=== PATIENT | female | born 1950 | race Caucasian/White ===

== ENCOUNTER → 2021-04-06 | Outpatient (CLI) | payer MEDICARE ==
[~2021-04-06] MED LIST: CALCIUM600 MG PO; CLONAZEPAM0.5 MG PO; COZAAR100 MG PO; CYANOCOBAL1000 MCG/1 INJ; CYCLOBENZAPRINE5 MG PO; ECOTRIN81 MG PO; LOVAZA1 GM PO; MOBIC7.5 MG PO; SYNTHROID112 MCG PO; TOPROL XL50 MG PO; VITAMIN B12-FO1 EACH PO; VITAMIN D32000 UNI1 PO; VITAMIN E400 UNI2 PO; ZYRTEC10 MG PO
== END ==
LOC: KOH-I 10:52
DX: R04.2 Hemoptysis (principal)
CPT/HCPCS: 71046

== ENCOUNTER 2021-07-04 13:38 | Emergency (ER) | payer MEDICARE ==
[~2021-07-04] VITALS: Ht 160 cm; Wt 77.1 kg
[2021-07-04] MEDS ORDERED: BACTRIM DS TAB1 EACH PO (16:38)
[2021-07-04] MEDS ORDERED: DELSYM30 MG/5 ML PO (16:38)
== END 2021-07-04 16:45 | disposition home or self-care (01) ==
LOC: ER1 13:38
DX: Z23 Encounter for immunization (principal); U07.1 COVID-19; I10 Essential (primary) hypertension; Z90.49 Acquired absence of other specified parts of digestive tract; Z90.710 Acquired absence of both cervix and uterus; Z88.0 Allergy status to penicillin
CPT/HCPCS: 71045; 81001; 87086; 99284; M0243

== ENCOUNTER → 2021-07-22 | Outpatient (CLI) | payer MEDICARE ==
[~2021-07-22] MED LIST changes: +BACTRIM DS TAB1 EACH PO; +DELSYM30 MG/5 ML PO
== END ==
LOC: LBRF 15:24
DX: N39.0 Urinary tract infection, site not specified (principal)
CPT/HCPCS: 87086

== ENCOUNTER → 2021-12-14 | Outpatient (CLI) | payer MEDICARE | LOC: KOH-I 10:50 | DX: M25.511 Pain in right shoulder (principal); M19.011 Primary osteoarthritis, right shoulder | CPT/HCPCS: 73030 ==

== ENCOUNTER 2022-03-03 13:25 | Emergency (ER) | payer MEDICARE | END 2022-03-03 16:21 | disposition home or self-care (01) | LOC: ER1 13:25 | DX: S61.011A Laceration without foreign body of right thumb without damage to nail, initial encounter (principal); S00.83XA Contusion of other part of head, initial encounter; I10 Essential (primary) hypertension; Z88.0 Allergy status to penicillin; Z79.82 Long term (current) use of aspirin; W01.10XA Fall on same level from slipping, tripping and stumbling with subsequent striking against unspecified object, initial encounter; Y92.009 Unspecified place in unspecified non-institutional (private) residence as the place of occurrence of the external cause | CPT/HCPCS: 12001; 70450; 99283 ==

== ENCOUNTER → 2022-05-20 | Outpatient (CLI) | payer MEDICARE ==
[2022-05-20 14:35] LABS: HEMOGLOBIN 13.8 gm/dl (12.3-15.3); RED BLOOD COUNT 4.79 M/UL (4.00-5.10); WHITE BLOOD COUNT 8.7 K/UL (4.5-11.0)
[2022-05-20 15:08] LABS: BUN/CREATININE RATIO 23 (0-10)
== END ==
LOC: LAB 13:51
PROVIDERS: Nurse Practitioner Family
DX: K63.5 Polyp of colon (principal); R25.2 Cramp and spasm
CPT/HCPCS: 36415; 80053; 83540; 83550; 83735; 84630; 85025